=== PATIENT | male | born 1960 | race Caucasian/White ===

== ENCOUNTER → 2020-05-17 00:23 | Outpatient (CLI) | payer OTHER, SELFPAY ==
[2020-05-17 18:59] LABS: SARS-CoV-2 RNA PCR Negative
== END ==
PROVIDERS: PCP Internal Medicine; Visit Provider Internal Medicine Critical Care Medicine
DX: Z01.812 Encounter for preprocedural laboratory examination (principal); Z20.822 Contact with and (suspected) exposure to COVID-19
CPT/HCPCS: C9803; U0003; U0005

== ENCOUNTER 2020-05-20 09:03 | Outpatient (CLI) | payer OTHER, SELFPAY ==
--- NOTE | 2020-05-29 12:09 | WPDSLEEPSTUD ---
Sleep Study Ordering Provider: Farida Teran NP Interpreting Physician: Jaleesa Mead MD Sleep Study Type: Split Polysomnogram Height: 1.8 m Weight: 131.088 kg Body Mass Index: 40.3 Neck Circumference (inches): 19 Hermon: 3 Reason for Sleep Study Loud snoring, waking during the night; Office note 03/13/2020 from Maria G Bailey NP shows that currently wears CPAP, nasal pillow falls off at night, and requested a mouthguard. Sleep History Aj Davis is a 59 year old man To constantly snores loudly enough that others complain about it. He rarely awakens at night with heartburn, belching or coughing. He occasionally awakens from sleep feeling short of breath. He constantly has trouble sleep with a cold. He occasionally wakes up gasping for breath at night, has breathing problems at night observed by others, a scaly sweats excessively at night and notices his heart pounding or beating irregularly night. He occasionally falls asleep during the day, occasionally involuntarily however never while driving. He rarely has loss of muscle tone was strong emotion. He rarely has daytime difficulties due to excessive sleepiness. He rarely feels paralyzed on waking or falling asleep. He rarely has vivid dreamlike scenes upon awakening or falling asleep. He rarely is afraid to go to sleep. He rarely has nightmares. He rarely remembers his dreams, rarely has racing thoughts and feelings of sadness or depression. He constantly has anxiety, worries about things. He rarely has muscular tension, notices parts of his body jerking, rarely kicks at night, really has crawling and aching feelings in his legs and rarely has any kind of leg pain at night. He does not have morning jaw pain. He constantly grind his teeth during sleep. He rarely is bothered by pain during the day, rarely is awakened by pain at night. He occasionally wakes up feeling stiff in the morning with sore achy muscles and pain in the neck and spine. Normal bedtime is 12 midnight taking 10 minutes to fall asleep waking twice at night to urinate, returning to sleep quickly. He wakes the morning at 9:00 a.m.. His weekend schedule is the same. He estimates 10 hours of sleep at night. He does not take naps. PMFSH Past Medical History Medical History Asbestos exposure GERD (gastroesophageal reflux disease) Hypertension IBD (inflammatory bowel disease) Irritable bowel disease Knee pain Obesity Prediabetes Family History Family History Sibling Patient's brother is in good health Lupus Mother Family history of Alzheimer's disease Father Fall Social History Social History Smoking status: Light tobacco smoker Tobacco type: cigars Alcohol intake: current Medications Home Medications Medication Instructions Recorded Confirmed Type aspirin 81 mg tablet,delayed 81 mg PO DAILY 03/16/19 08/14/19 History release mirabegron 50 mg tablet,extended 50 mg PO DAILY 10/24/19 History release 24 hr testosterone cypionate 200 mg/mL 200 mg IM .every 2 weeks ml 10/24/19 History intramuscular oil allopurinol 100 mg tablet 100 mg PO DAILY #90 tablet 12/11/19 Rx tamsulosin 0.4 mg capsule 0.4 mg PO DAILY #90 cap 12/11/19 Rx amlodipine 10 mg tablet 10 mg PO DAILY #90 tablet 01/09/20 01/09/20 Rx triamterene 37.5 1 tablet PO DAILY #90 tablet 01/10/20 Rx mg-hydrochlorothiazide 25 mg tablet pantoprazole 40 mg tablet,delayed 40 mg PO DAILY #90 tablet 04/16/20 Rx release Sleep Procedure This test was performed using the [employer] multiple channel system including EOG, EEG, submental EMG, EKG, nasal and oral airflow using thermistors and nasal pressure sensors, chest and abdominal belts for body position data, and pulse oximetry. Video monitoring was also performed. The study was scored using C
[2020-05-29 12:49] VITALS: BMI 40.3
== END 2020-05-20 09:04 | disposition home or self-care (01) ==
LOC: ANHCSM 09:03
PROVIDERS: PCP Internal Medicine; Visit Provider Nurse Practitioner
DX: G47.33 Obstructive sleep apnea (adult) (pediatric) (principal)
CPT/HCPCS: 95811

== ENCOUNTER 2020-09-30 14:45 | Outpatient (CLI) | payer OTHER, SELFPAY ==
--- NOTE | ~2020-09-30 | XR_ITS ---
XR abdomen/kub 1V 09/30/2020 15:06 INDICATION: Microhematuria TECHNIQUE: KUB COMPARISON: Comparison to multiple prior studies sequentially, with oldest reviewed study dated 06/04. FINDINGS: Bowel gas pattern is normal. There is no evidence of free air, mass, organomegaly, ascites or obstruction. No abnormal calculi are seen. The bones appear intact. IMPRESSION: 1: No acute abdominal abnormality identified. Reviewed, dictated and finalized at location A.
== END 2020-09-30 14:46 | disposition home or self-care (01) ==
LOC: ANHIMG 14:49
PROVIDERS: PCP Internal Medicine; Visit Provider Nurse Practitioner Adult Health
DX: R31.29 Other microscopic hematuria (principal)
CPT/HCPCS: 74018

== ENCOUNTER → 2022-11-11 08:42 | Outpatient (CLI) | payer OTHER, SELFPAY ==
--- NOTE | ~2022-11-11 | CT_ITS ---
EXAMINATION: CT sinus wo con DATE: 11/11/2022 08:57 INDICATION: Tinnitus, sinusitis TECHNIQUE: Computed tomography (CT) of the paranasal sinuses was performed without intravenous contra st. The dose-length product (DLP) was 433.02 mGy-cm. Iterative reconstruction was used. COMPARISON: 06/29/2016 FINDINGS: There is normal development and pneumatization of the paranasal sinuses. There is complete opacification of the left sphenoid sinus. There is partial opacification of the anterior and posterio r ethmoidal air cells, left greater than right. There is mucosal thickening of the left maxillary sin us. There are 6 degrees of leftward deviation of the nasal septum. Visualized soft tissues are unrema rkable. There is mild mucosal thickening of the right sphenoid and left frontal sinuses. IMPRESSION: 1. Sinus disease as detailed above. Reviewed, dictated and finalized at location F.
== END ==
PROVIDERS: PCP Internal Medicine; Visit Provider Otolaryngology
DX: J34.2 Deviated nasal septum (principal); Z87.09 Personal history of other diseases of the respiratory system
CPT/HCPCS: 70486

== ENCOUNTER 2023-04-27 00:55 | Day surgery (SDC) | payer OTHER, SELFPAY ==
[2023-04-16 08:38] VITALS: BMI 33.8
--- NOTE | 2023-04-16 09:22 | PC.NURSE ---
Report to the Outpatient Waiting Room, entrance under the green pavilion located off [facility], at time ___8:00am____ on date __04/27/23 . Planned Procedure Time: __10:00am . Time changes happen often and if your time is changed the preop area will call you the afternoon before. - You and your visitor will be asked to self-screen and do not enter if you have any COVID symptoms. - A mask is optional within the hospital at this time. Patients may have clear liquids (water, carbonated beverages, clear teas, apple juice) until 3 hours prior to surgery with a maximum of 20 ounces. - No food from midnight until time of surgery. Take the following medications with a SIP of water the morning of surgery: ____NONE DO NOT STOP ANY OF YOUR OTHER PRESCRIPTION MEDICATIONS PRIOR TO SURGERY ?EXCEPT THE FOLLOWING Medications to discontinue per physician ___HOLD ASPIRIN 7 DAYS PRE-OP PER DR BURK- LAST DOSE 04/19/23 HOLD ALL VITAMINS/SUPPLEMENTS 3 DAYS PRE-OP PER ANESTHESIA- LAST DOSE 04/23/23. Please no make-up, nail kyrgyz, hairspray, perfume, deodorant, or body powder the day of surgery. No jewelry (including any body piercings) or valuables the day of surgery, leave them at home. Please take a shower or bath the night before, or the morning of, surgery with an antibacterial soap. Wear comfortable, loose fitting clothing. Children are encouraged to wear pajamas. - Jewelry must be removed prior to entering the operating room. Rings and piercings that are not removed may be cut off. - The hospital will not accept responsibility for valuables. - Please leave all valuables, including medications, at home the day of surgery. If you are going home after surgery, a licensed cdl a driver must drive you home. - NO public transportation without another adult if you receive anesthesia. - We recommend that an adult stay with you for 24 hours following discharge. - We also recommend that you do not drive, make important decision, drink alcoholic beverages, or take any drugs that were not prescribed by your health care provider for at least 24 hours after your discharge time. Follow any additional instructions given to you from your surgeon. If you or anyone in your household have experienced Covid symptoms in the past week, please notify your surgeon or the nurse liaison at the phone number below for possible testing. Telephone instructions given to ____PATIENT and asked if any additional questions and then verbalized understanding. Patient advised to call surgeon office or pre surgery nurse liaison [phone] if any additional questions.
--- NOTE | 2023-04-25 16:04 | PM.IMHP ---
H&P: HPI History of Present Illness Date/Time: 04/25/23 16:04 Chief Complaint: septal deviation turbinate hypertrophy chronic sinusitis fungal sinusitis Narrative: planned procedure Review of Systems Review of Systems: All systems reviewed & are unremarkable except as noted in HPI and below PMFSH Past Medical History Medical History Asbestos exposure Deviated septum GERD (gastroesophageal reflux disease) Hypertension IBD (inflammatory bowel disease) Irritable bowel disease Knee pain Obesity Obstructive sleep apnea Prediabetes Family History Family History Sibling Patient's brother is in good health Lupus Mother Family history of Alzheimer's disease Father Fall Social History Social History Social History: Caffeine-daily Smoking status: Current some day smoker Tobacco type: cigars Additional smoking assessment comments: SMOKES CIGARS WHEN ON VACATION MOSTLY, APPROX 4 CIGARS/MONTH Alcohol intake: current Alcohol use details: binge drinker Substance use: current Substance use type: marijuana Living arrangements: with family Additional living arrangements comments: Spiritual care concerns: No Meds Home Medications and Allergies Home Medications Medication Instructions Recorded Confirmed Type testosterone 50 mg/5 gram (1 %) 1 tube transdermal QAM 02/18/21 04/16/23 History transdermal gel aspirin 81 mg tablet,delayed 81 mg PO DAILY #90 tabs 03/12/23 04/16/23 Rx release (Adult Low Dose Aspirin) CPAP mask #1 ea 03/23/23 03/23/23 Rx doxazosin 1 mg tablet 1 mg PO DAILY 04/16/23 04/16/23 History sakerbee-cqlocjiv-qto C 250 2 tablet PO DAILY 04/16/23 04/16/23 History mg-herbal no.124 11.66 mg chewable tablet (Airborne Gummy) prednisone 10 mg tablet 10 mg PO .daily #5 tabs 04/21/23 04/21/23 Rx Allergies Allergy/AdvReac Type Severity Reaction Status Date / Time No Known Allergies Allergy Verified 04/16/23 08:32 Exam Narrative: septal deviation turbinate hypertrophy chronic appearing sinuses. Assessment and Plan Assessment and plan (1) Allergic fungal sinusitis: Code(s): J30.89 - Other allergic rhinitis; B49 - Unspecified mycosis Status: Acute Assessment and Plan: Plan OR image guided endoscopic bilateral maxillary antrostomies total ethmoidectomies frontal sinusotomies sphenoidotomies. Left sphenoid with tissue removal. 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 Septoplasty endoscopic assisted as well as turbinate reduction. Total operative time likely 3 hours. Risks were discussed including bleeding infection damage to surrounding structures significant or I should say more significant risk of damage to left carotid stroke. Given that it is dehiscent in the sphenoid. Change in vision total blindness CSF leak brain brain damage need for routine postoperative care prolonged use of medications. CSF leak brain brain damage damage to any structure of the clavicle by myself damage to any structure in the induction and maintenance of anesthesia. Patient voiced understanding and agreed. (2) Hypertrophy of both inferior nasal turbinates: Code(s): J34.3 - Hypertrophy of nasal turbinates Status: Acute (3) Chronic sinusitis: Code(s): J32.9 - Chronic sinusitis, unspecified Status: Acute (4) Deviated septum: Code(s): J34.2 - Deviated nasal septum Status: Acute
[2023-04-27] VITALS (9 sets, daily range): BP systolic 133–164; BP diastolic 66–86; PULSE 63–99; RESP 16–20; TEMP 36.2–36.7; O2SAT 93–100
--- NOTE | 2023-04-27 07:18 | WPDHPUPDATE1 ---
History and Physical Update Update Date/Time: 04/27/23 07:18 History and Physical has been reviewed, including an updated exam of the patient. There are NO changes in the patient's condition. Risks, benefits, and alternatives have been discussed and questions answered. Patient agrees to proceed with procedure. Other than possible left middle turbinectomy and inferior turbinate reduction with outfracture
[2023-04-27] MEDS: ACETAMINOPHEN 500 MG TABLET 1000 MG PO (08:41)
--- NOTE | 2023-04-27 09:47 | WPDANESEPPF ---
Anes - Initial Pre Proc Eval Procedure: Operation Date: 04/27/23 10:00 Proposed Procedures p Endoscopic Septoplasty, - Mirza Alejo MD s Image Guided Bilateral Inferior Turbinate Reduction with Outfracture, Bilateral Maxillary Antrostomy, Total Ethmoidectomy, Bilateral Frontal Sinusotomy, Left Side with Tissue Removal, Bilateral Sphenoidotomy, Left Side with Tissue Removal - Mirza Alejo MD Date/Time: 04/27/23 09:47 Surgeon: Mirza Alejo MD Pre Op Diagnosis: chronic sinusitis, septal deviation Patient Data Age: 62 Gender: M Height: 1.8 m Weight: 115.8 kg Last Vital Signs Temp 36.7 C 04/27/23 08:18 Pulse 63 04/27/23 08:18 Resp 18 04/27/23 08:18 BP 134/73 04/27/23 08:18 Pulse Ox 99 04/27/23 08:18 O2 Del Method Room Air 04/27/23 08:18 Allergies Allergy/AdvReac Type Severity Reaction Status Date / Time No Known Allergies Allergy Verified 04/27/23 08:24 Home Medications Medication Instructions Recorded Confirmed Type testosterone 50 mg/5 gram (1 %) 1 tube transdermal QAM 02/18/21 04/16/23 History transdermal gel aspirin 81 mg tablet,delayed 81 mg PO DAILY #90 tabs 03/12/23 04/27/23 Rx release (Adult Low Dose Aspirin) CPAP mask #1 ea 03/23/23 03/23/23 Rx doxazosin 1 mg tablet 1 mg PO DAILY 04/16/23 04/16/23 History opuwlzkz-rkpsivnj-kee C 250 2 tablet PO DAILY 04/16/23 04/27/23 History mg-herbal no.124 11.66 mg chewable tablet (Airborne Gummy) prednisone 10 mg tablet 10 mg PO .daily #5 tabs 04/21/23 04/21/23 Rx Patient hx anesthesia problems: none Family hx anesthesia problems: none Results Review: All pre-operative results and documents have been reviewed as part of the pre-operative evaluation. [facility] Past Medical History Medical History Asbestos exposure Deviated septum GERD (gastroesophageal reflux disease) Hypertension IBD (inflammatory bowel disease) Irritable bowel disease Knee pain Obesity Obstructive sleep apnea Prediabetes Family History Family History Sibling Patient's brother is in good health Lupus Mother Family history of Alzheimer's disease Father Fall Social History Social History Social History: Caffeine-daily Smoking status: Current some day smoker Tobacco type: cigars Additional smoking assessment comments: SMOKES CIGARS WHEN ON VACATION MOSTLY, APPROX 4 CIGARS/MONTH Alcohol intake: current Alcohol use details: binge drinker Substance use: current Substance use type: marijuana Living arrangements: with family Additional living arrangements comments: Spiritual care concerns: No Anes - Eval Final PreProcedure Day of Procedure 04/27/23 09:47 Patient weight: obese Heart: regular rate and rhythm Lungs: decreased breath sounds Airway: Mallampati scale class II Neurological: alert and oriented Last oral intake: >/= 8 hours ASA classification: III Emergent: no Anesthetic plan: proceed Anesthesia type and monitoring: general ETT and standard monitoring Results Review: All pre-operative results and documents have been reviewed as part of the pre-operative evaluation. Informed Consent: The patient's anesthetic plan and its attendant risks and benefits were discussed with the patient/family/POA. Questions were solicited and answers provided to the satisfaction of the patient/family/POA.
[2023-04-27] MEDS: ceFAZolin 2 GM/D5W 50 ML 2 GM/50 ML BAG IVPB (10:20)
[2023-04-27] MEDS: LIDO 1%/EPINEPHRINE 1:100,000 20 ML VIAL 50 ML INFILTRATE (10:39)
[2023-04-27] MEDS: OXYMETAZOLINE HCL 0.05% NAS 15 ML BTL (*BKC) 1 SPRAY NASAL (10:40)
[2023-04-27] MEDS: HEMOSTATIC MATRIX (SURGIFLO with THROMBIN) KIT 1 KIT XX (13:19)
[2023-04-27] MEDS: LACTATED RINGERS 1,000 ML 30 ML IV CONT (14:08)
--- NOTE | 2023-04-27 14:22 | W.PM.PROC2 ---
Procedure Note - Detailed Date of Procedure 04/27/23 Pre-op Diagnosis chronic sinusitis, septal deviationUps turbinate hypertrophy nasal polyps Post-op Diagnosis Same Procedure Performed endoscopic assisted septoplasty bilateral inferior turbinate reduction with outfracture right-sided image guided endoscopic maxillary antrostomy total ethmoidectomy sphenoidotomy left-sided image guided endoscopic maxillary antrostomy total ethmoidectomy sphenoidotomy frontal sinusotomy left-sided middle turbinate resection propel stent left frontal Surgeon Mirza Alejo MD Anesthesia General Indications see above Findings severely diseased osteotomies sinuses. Dehiscent carotid left sphenoid no fungal disease dehiscent orbit right-sided a no injury to orbit minimal blood loss deviated septum large turbinates lots of polyps in the sinuses Description of Procedure patient identified consent verified preop. Patient to the operating. Time-out performed. General anesthesia induced endotracheal tube secured. Patient prepped draped position image guidance initiated and confirmed. 0 degree endoscope utilized Afrin-soaked pledgets placed for 5 minutes then removed. Left-sided Baltazar incision made the septum total 15 cc 1% lidocaine 100 parts epinephrine injected the bilateral nasal septum inferior turbinates left stuck middle turbinate. Again Baltazar incision made left-sided 15 blade left nasal septal flap elevated evidence of previous septoplasty which we did not know. Right-sided nasal septal flap elevated after septum cross over the osteotome. Deviated septum removed Denice forceps osteotome [place] Leon forceps. Turbinates reduced submucosal plane 15 blade used to make incision citiservi microdebrider turbinate reduction blade 2.5 mm good reduction outfracture [place] elevator. FloSeal placed in the septum and turbinates Baltazar incision closed 5 interrupted 5 0 fast gut sutures. Left-sided sinus surgery performed under image guidance backbiter straight through cut microdebrider great care taken not to injure the skull base or orbit frontal upper frontal sinusotomy performed with frontal sinus instruments Harjit Alcocer propel stent placed lots of polypoid edema and polyps throughout. Great care was taken to not injure the orbit or skull base. Sphenoidotomy performed under image guidance as well as total ethmoidectomy Kerrison sphenoid punch there was no fungal disease in the left sphenoid which was interesting. Dehiscent carotid observed. It is below mucosa or deep to mucosa. Minimal bleeding. Right-sided all the sinuses were opened other than the frontal with the same instruments backbiter straight through cut microdebrider sphenoid punch really osteotomy thick bone with lots of polyps. All polyps were removed with microdebrider. The wounds were copiously irrigated. Nova pack placed bilaterally York splints placed sutured anteriorly using 5 0 sorry 3-0 nylon suture mattress. Right York splint was placed next the middle turbinate left middle turbinate was resected using straight through cut stalk was cauterized using Bovie suction electrocautery a setting of 10 in 15. Total blood loss 50 cc. I performed all dictated portions procedure no complications care the patient back to Anesthesiology patient taken to PACU. Estimated Blood Loss 50 Drains No Packing Yes ( Nova pack) Pathology None sent Complications No immediate complications Condition Stable Disposition PACU [facility] Billing Surgery - Charge Forward: Surgery Billing
[2023-04-27] MEDS: fentaNYL CITRATE INJ (*CRX) 100 MCG/2 ML VIAL 25 MCG IV PUSH ×2 (14:46→14:49)
[2023-04-27] MEDS: oxyCODONE HCL (*CRX) 5 MG TAB IR PO (15:54)
== END 2023-04-27 16:23 | disposition home or self-care (01) ==
PROVIDERS: PCP Internal Medicine; Visit Provider Otolaryngology
PROC: (CPT 30520; principal; 2023-04-27 10:00)
PROC: (CPT 30520; 2023-04-27 10:00)
DX: J34.2 Deviated nasal septum (principal); J32.9 Chronic sinusitis, unspecified; J34.3 Hypertrophy of nasal turbinates; J33.8 Other polyp of sinus; K21.9 Gastro-esophageal reflux disease without esophagitis; E66.9 Obesity, unspecified; Z68.35 Body mass index [BMI] 35.0-35.9, adult; G47.33 Obstructive sleep apnea (adult) (pediatric)
CPT/HCPCS: 30520; 30140; 31256; 31257; 31276; 61782; A9270; C2625; J0171; J0330; J0690; J1100; J1596; J2250; J2371; J2704; J3010; J7050; J7120